=== PATIENT | male | born 1970 | race Two or more races ===

== ENCOUNTER 2017-06-01 14:51 | Emergency (ER) | payer SELFPAY ==
[~2017-06-01] VITALS: Ht 167.6 cm; Wt 117.9 kg
[2017-06-01] MEDS: IV NS 0.9% 1,000 ML BAG IV ONE (15:02)
--- NOTE | 2017-06-01 15:04 | NUR ---
PT BROUGHT IN BY [facility]OUND ON [address] [facility] WITH 18 G IN RAC PT UNRESPONSIVE TO VOCAL COMMANDS. LABS DRAWN PLACED ON DRIVEWAY SEALER EKG DONE
[2017-06-01 15:23] LABS: BASOPHILS # (AUTO) 0.1 /CMM (0.0-0.2); BASOPHILS % (AUTO) 0.7 % (0.0-2.0); EOSINOPHILS % (AUTO) 0.4 % (0.0-6.0); HEMATOCRIT 39 % (39-51); HEMOGLOBIN 12.3 g/dL (13.5-17.5); LYMPHOCYTES # (AUTO) 2.9 /CMM (0.8-4.8); LYMPHOCYTES % (AUTO) 26.8 % (20.0-44.0); MEAN CORPUSCULAR HEMOGLOBIN 24 PG (26.0-33.0); MEAN CORPUSCULAR HGB CONC 32 g/dl (31.0-36.0); MEAN CORPUSCULAR VOLUME 75 fL (80-96); MONOCYTES # (AUTO) 0.5 /CMM (0.1-1.30); MONOCYTES % (AUTO) 4.2 % (2.0-12.0); NEUTROPHILS # (AUTO) 7.4 /CMM (1.8-8.9); NEUTROPHILS % (AUTO) 67.9 % (43.0-81.0); PLATELET COUNT (AUTO) 209 /CMM (150-450); RDW COEFFICIENT OF VARIATION 14.4 (11.5-15.0); RED BLOOD CELL COUNT(AUTO) 5.17 MIL/uL (4.5-6.0); WHITE BLOOD COUNT (AUTO) 10.9 K/uL (4.3-11.0)
[2017-06-01 15:26] LABS: APPEARANCE,URINE Clear (CLEAR); BILIRUBIN,URINE Negative (NEGATIVE); BLOOD, URINE Negative Ery/uL (NEGATIVE); COLOR,URINE Yellow (YELLOW); KETONES,URINE Negative (NEGATIVE); LEUKOCYTE ESTERASE ,URINE Negative (NEGATIVE); NITRITE, URINE Negative (NEGATIVE); PROTEIN,URINE Negative (NEGATIVE); UGLUCOSE Negative (NEGATIVE); UROBILINOGEN,URINE 0.2 EU/dL (0.2)
[2017-06-01] MEDS: NALOXONE HCL 0.4 MG/ML AMPUL IV ONE (15:29)
[2017-06-01] MEDS ORDERED: NALOXONE HCL 0.4 MG/ML AMPUL ONE (15:30)
[2017-06-01 15:39] LABS: ALBUMIN 3.9 g/dL (3.4-5.0); BILIRUBIN,DIRECT 0.1 mg/dL (0.0-0.2); BILIRUBIN,TOTAL 0.3 mg/dL (0.2-1.0); CALCIUM, SERUM 8.3 mg/dL (8.5-10.1); SALICYLATE 4.1 mg/dL (2.8-20.0); TOTAL PROTEIN, SERUM 7.8 g/dL (6.4-8.2)
[2017-06-01 15:45] LABS: POTASSIUM 3.8 mmol/L (3.5-5.1)
--- NOTE | 2017-06-01 15:51 | NUR ---
NON-RESPONSE TO NARCAN REPORTED TO MD. PT HAS MEDICATIONS IN BAG INCLUDING BENZOS PT URINE POSITIVE FOR BENZOS AND ETOH 307
[2017-06-01] MEDS ORDERED: GABA-532 PO (17:53)
[2017-06-01] MEDS ORDERED: LISI10TA5 PO (17:53)
[2017-06-01] MEDS ORDERED: THIA100T74 PO (17:53)
[2017-06-01] MEDS ORDERED: MELO-107 PO (17:53)
[2017-06-01] MEDS ORDERED: QUET300T2 PO (17:53)
[2017-06-01] MEDS ORDERED: ACET-868 PO (17:53)
[2017-06-01] MEDS ORDERED: PARO40TA4 PO (17:53)
[2017-06-01] MEDS ORDERED: TOPI50TA24 PO (17:53)
[2017-06-01] MEDS ORDERED: MULT-447 PO (17:53)
[2017-06-01] MEDS ORDERED: TEMA15CA PO (17:53)
[2017-06-01] MEDS ORDERED: LORA1TAB PO (17:53)
--- NOTE | 2017-06-01 19:11 | NUR ---
REPORT RECEIVED FROM SELIN [place] FOR [facility].
--- NOTE | 2017-06-01 19:12 | NUR ---
PT RESTING QUIETLY, AROUSES EASILY TO VOICE. VSS.
--- NOTE | 2017-06-01 22:23 | NUR ---
Patient discharged to home in stable condition. Written and verbal after care instructions given. Patient verbalizes understanding of instruction. Patient is awake and alert to self, day, and place. Patient ambulatory with a steady gait.
[2017-06-01 22:24] VITALS: BP 118/76
== END 2017-06-01 22:25 | disposition home or self-care (01) ==
LOC: ER 14:54
DX: G93.40 Encephalopathy, unspecified (principal); F19.10 Other psychoactive substance abuse, uncomplicated; Y90.8 Blood alcohol level of 240 mg/100 ml or more
CPT/HCPCS: 36415; 51701; 70450; 71045; 71250; 80048; 80076; 80305; 80329; 81001; 82962; 85025; 93005; 96361; 96374; 99285; A4606; G0480 ×2; J2310; J7030; Z7610; 81000-TC